=== PATIENT | female | born 2000 | race Caucasian/White ===

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

== ENCOUNTER 2021-03-17 07:25 | Day surgery (SDC) | payer OTHER ==
[2021-02-09 12:11] LABS: Specific Gravity >= 1.030 (1.005-1.030)
[2021-03-17] MEDS ORDERED: OXYMETAZOLINE HCL 0.05% 15ML NAS ONE ×4 (07:36→08:01)
[2021-03-17] MEDS ORDERED: Ringers Lactate 1,000 ML IV ONE (07:36)
[2021-03-17 07:53] LABS: Specific Gravity >= 1.030 (1.005-1.030)
[2021-03-17] MEDS ORDERED: ROCURONIUM 50 MG/5 ML VIAL IV ONE (09:01)
[2021-03-17] MEDS ORDERED: dexAMETHasone 10 MG/ML VIAL ONE (09:01)
[2021-03-17] MEDS ORDERED: LIDOCAINE 1% MPF 5 ML VIAL ONE (09:01)
[2021-03-17] MEDS ORDERED: propofoL 200 MG/20 ML VIAL IV ONE (09:01)
[2021-03-17] MEDS ORDERED: FENTANYL CITR 100 MCG/2 ML ONE (09:01)
[2021-03-17] MEDS ORDERED: ONDANSETRON 4 MG/2 ML VIAL ONE ×2 (09:01→12:59)
[2021-03-17] MEDS ORDERED: MIDAZOLAM HCL 2 MG/2 ML INJ ONE (09:01)
[2021-03-17] MEDS ORDERED: OFLOXACIN OPH 0.3%-5 ML BTL ONE (09:12)
[2021-03-17] MEDS ORDERED: MEPERIDINE HCL 25 MG/ML SYR ONE (10:40)
[2021-03-17] MEDS: MORPHINE 4 MG/ML SYR ONE ×2 (10:47→10:54)
[2021-03-17] MEDS: HYDROMORPHONE HCL 1 MG/ML INJ ONE ×2 (11:05→11:13)
--- NOTE | 2021-03-17 11:22 | P.OP ---
Date of Service: 03/17/21 Preoperative diagnosis: Recurrent acute suppurative otitis media, right and adenoid hypertrophy Postoperative diagnosis: Same with concern for right cholesteatoma Procedure: Right myringotomy with tympanostomy tube placement and adenoidectomy including biopsy Indication: The patient had persistent symptoms and abnormal clinical findings despite maximal medical therapy Details of operation: The patient was brought to the operating room and placed under general anesthesia via oral endotracheal tube. The left ear was visualized under the operating microscope with the aid of an ear speculum. The ear canal and eardrum appeared unremarkable. There was no evidence of middle ear fluid. No tube was placed. I then examined the right side. Cerumen was removed from the canal using a wire curette. The pars flaccida was significantly retracted with some dry skin and squamous debris but no active pus, and no granulation tissue. A pick and alligator were used to gently clean the flaky skin from the retraction pocket. A myringotomy incision was made in the anterior-inferior quadrant and no significant amount of fluid was aspirated from the middle ear space. A [Paparella type 1] tube was positioned across the incision using the alligator forceps and pick. The head of bed was turned 90 degrees. A shoulder roll was placed and the neck was extended. A head drape was applied. The McIvor mouthgag was placed and suspended from the Hough stand. The oxygen concentration was confirmed with the anesthesiologist and was less than 40%. Dexamethasone was administered on a weight-based fashion by the supervisor scenic arts. The soft palate was palpated and there was no submucous cleft. A red rubber catheter was placed in the nose and retracted through the mouth and secured for retraction of the soft palate. A laryngeal mirror was used to visualize the nasopharynx. The adenoid size was moderate. A straight Blakesley forcep was passed through the left nostril and advanced into the nasopharynx where it was visualized using the mirror. It was used to collect 3 bites of adenoid tissue which were sent fresh to pathology. Teri baeza partial aspects of the adenoids were removed using the suction cautery. Hemostasis was achieved using packing and cautery as necessary. [The nasal cavity and nasopharynx were thoroughly irrigated using cold saline.] Blood loss was minimal. All packing was removed. A Graford sump orogastric tube was used to decompress the stomach. The red rubber catheter was removed and used to suction the nasopharynx and nasal cavity. The mouthgag was removed; there was no evidence of injury to the lips, teeth, or tongue. The mandible was mobile. The head drape and shoulder roll were removed. The patient was returned to care of anesthesia for awakening and extubation in the operating room which proceeded without difficulty. Estimated blood loss: 5 -10 ml IV fluids: Crystalloid, see anesthesia records for volume Disposition: The patient will be discharged in the care of their family. Written postoperative instructions will be distributed. The patient will follow-up with Dr. Oconnell's office in approximately 4 weeks.
[2021-03-17] MEDS ORDERED: ACETAMINOPHEN 500 MG TAB ONE (12:06)
[2021-03-17 12:28] VITALS: BP 104/67; TEMP 97; O2SAT 100
== END 2021-03-17 13:15 | disposition home or self-care (01) ==
LOC: OR 07:25
PROVIDERS: ATTEND Otolaryngology
PROC: 0CTQXZZ Resection of Adenoids, External Approach (ICD-10-PCS; principal; 2021-03-17 09:15)
PROC: 099570Z Drainage of Right Middle Ear with Drainage Device, Via Natural or Artificial Opening (ICD-10-PCS; 2021-03-17 09:15)
DX: H66.004 Acute suppurative otitis media without spontaneous rupture of ear drum, recurrent, right ear (principal); J35.2 Hypertrophy of adenoids; U07.1 COVID-19
CPT/HCPCS: 81025 ×2; 88305; 42831; 69436; U0003; J2704; J2250; J3010; J1100; J2175; J1170; J7120; J2405 ×2